=== PATIENT | male | born 1980 | race Caucasian/White ===

== ENCOUNTER 2024-08-06 07:57 | Day surgery (SDC) | payer OTHER, SELFPAY ==
--- NOTE | 2024-08-06 | PATH_ITS ---
[facility] Accession Number: [id number] No. of containers..01 Tissue . 01 Material submitted: . rectum - RECTAL POLYP . 01 Diagnosis: RECTAL POLYP: Hyperplastic polyp. MRV 08/10/2024 1115 Local . 01 Electronically signed: . Eran Dominique MD, PhD, Pathologist NPI- [id number] . 01 Gross description: . Received in formalin with two patient identifiers and rectal polyp, is a single james to brown soft tissue fragment, 0.8 cm in greatest dimension. Submitted in A1. ([id number]) /MRV 08/07/2024 1828 Local . 01 Pathologist provided ICD-10: K62.1 . 01 CPT . 882774 Specimen Comment: A courtesy copy of this report has been sent to [phone] Performed at: [address] [facility] [id number] MD Valdez Mccall MD Phone: [phone]
[2024-08-06] MEDS: LACTATED RINGERS 1,000 ML 100 ML IV (08:21)
[2024-08-06 08:22] VITALS: BP 104/72; PULSE 58; RESP 16; TEMP 36.3; O2SAT 98
--- NOTE | 2024-08-06 08:35 | PM.HP.1 ---
History of Present Illness History of Present Illness Date Patient Seen: 08/06/24 Time Patient Seen: 08:35 Chief complaint: SDC Narrative: Bhavin is a 44-year-old man who is here for a screening colonoscopy. He has never had one before. His grandfather had colon cancer. [facility] Family History Father Cancer Grandfather Cancer Social History marital status: number of children: 4 Smoking Status: Never smoker alcohol intake: never caffeine: Yes Type(s) of exercise: aerobic and weight lifting frequency: 5-6 times per week duration: 45-60 minutes/day Meds Home Medications and Allergies Home Medications Medication Instructions Recorded Confirmed Type No Known Home Medications 08/06/24 08/06/24 History Allergies Allergy/AdvReac Type Severity Reaction Status Date / Time No Known Drug Allergies Allergy Verified 08/06/24 08:19 Exam Vital Signs (past 8 hours): - 08/06/24 08:22 Temperature 97.3 F L Pulse Rate 58 L Respiratory Rate 16 Blood Pressure 104/72 Pulse Oximetry 98 Oxygen Delivery Method Room Air Oxygen Delivery Method Room Air Const General: healthy appearing Resp Effort & Inspection: normal respiratory effort Assessment & Plan Assessment and plan (1) Colon cancer screening: Status: Acute Plan Bhavin is a 44 year old man here for a colonoscopy for colon cancer screening. We reviewed the risks and benefits and he would like to proceed. Time-Based Coding :: [TOTAL MINUTES] spent with patient and on the chart (including review of chart, obtaining history, exam, reviewing outside data, placing orders, documenting exam and treatment plan, and counseling patient) on [DATE].
[2024-08-06 09:00] VITALS: BP 95/64; PULSE 72; RESP 22; TEMP 36.2; O2SAT 96
--- NOTE | 2024-08-06 09:03 | PM.OP.COLON ---
Operative Date/Time/Diagnoses Date of procedure: 08/06/24 Time of procedure: 09:03 Pre-op diagnosis: Colon cancer screening Post-op diagnosis: same Procedure & Clinicians Study performed: Colonoscopy Same procedure as scheduled: Yes Surgeon: Danny Jaeger Procedure Notes Procedure in detail: Surgeon: Danny Jaeger MD Anesthesia: Kaitlyn Husain CRNA Procedure: The patient was brought to the endoscopy suite, placed in left lateral decubitus position. The patient was connected to monitoring devices. A time-out was performed. Sedation was administered. Once the patient was adequately sedated, a digital rectal exam was performed and was normal. The scope was then inserted and advanced to the cecum where the appendiceal orifice was identified and photographed. The scope was then slowly withdrawn over greater than 6 minutes. The mucosa was thoroughly inspected. No abnormalities were identified. The scope was retroflexed in the rectum. The scope was straightened and removed. The patient was awakened and brought to recovery. Scope withdrawal time: 9 minutes Sedation time: 13 minutes EBL: 0 Findings: Normal colon Post-procedure Recommendations: Colonoscopy in 10 years Disposition: PACU
[2024-08-06 09:05] VITALS: BP 91/60; PULSE 60; RESP 16; TEMP 36.6; O2SAT 96
[2024-08-06 09:10] VITALS: BP 93/60; PULSE 60; RESP 16; TEMP 36.4; O2SAT 95
[2024-08-06 09:15] VITALS: BP 99/64; PULSE 68; RESP 13; TEMP 36.4; O2SAT 98
[2024-08-06 09:20] VITALS: BP 100/61; PULSE 65; RESP 15; TEMP 36.4; O2SAT 99
== END 2024-08-06 09:47 | disposition home or self-care (01) ==
PROVIDERS: PCP Nurse Practitioner Family; Referring Provider Surgery; Visit Provider Surgery
PROC: 0DJD8ZZ Inspection of Lower Intestinal Tract, Via Natural or Artificial Opening Endoscopic (ICD-10-PCS; CPT 45378; principal; 2024-08-06 09:00)
DX: Z12.11 Encounter for screening for malignant neoplasm of colon (principal)
CPT/HCPCS: 45378; J2704

== ENCOUNTER → 2025-11-16 15:10 | Outpatient (CLI) | payer OTHER, SELFPAY | LOC: RESP 15:11 | PROVIDERS: PCP Nurse Practitioner Family; Referring Provider Nurse Practitioner Family; Visit Provider Nurse Practitioner Family | DX: J45.990 Exercise induced bronchospasm (principal); R94.2 Abnormal results of pulmonary function studies | CPT/HCPCS: 94060 ==

== ENCOUNTER → 2025-11-29 12:39 | Outpatient (CLI) | payer OTHER, SELFPAY ==
--- NOTE | 2025-11-29 12:41 | DI.ECHO.S_ITS ---
[facility]+ [facility] : : [address] : : [place] : : [id number] : : Phone: [phone] Echocardiogram Report + + :Name: BHAVIN ROD Study Date: 11/29/2025 Height: 70 in : :Hospital ReadingLocation: Weight: 190 lb : : Gender: Male BSA: 2.0 m2 : :: 1980 Age: 45 yrs BP: 135/75 mmHg: :Reason For Study: BRADYCARDIA : :Ordering Physician: MICAELA, : :TYESHA Performed By: Bhavin Clarke : :Referring: TYESHA HINOJOSA : + + Interpretation Summary The ejection fraction is estimated to be 55-60%. Diastolic parameters suggest probable normal left ventricular diastolic function and normal filling pressures. The right ventricular systolic function is normal. The right ventricular systolic pressure is estimated to be at least 34 mmHg based on an estimated right atrial pressure of 8 mm Hg. The left atrium is mildly dilated. The right atrium is moderate to severely dilated. There is mild tricuspid regurgitation. Procedure: A two-dimensional transthoracic echocardiogram with color flow and Doppler was performed. The study quality was technically good. There is no prior echocardiogram noted for this patient. The patient was in a bradycardic rhythm during the exam. Left Ventricle: The left ventricle is normal in size. Left ventricular wall thickness is borderline increased. There is no ventricular septal defect visualized. The ejection fraction is estimated to be 55-60%. There are no focal wall motion abnormalities. Diastolic parameters suggest probable normal left ventricular diastolic function and normal filling pressures. Right Ventricle: The right ventricle is mildly dilated. The right ventricular systolic function is normal. Atria: The left atrium is mildly dilated. The right atrium is moderate to severely dilated. There is no Doppler evidence for an interatrial shunt. Mitral Valve: The mitral valve leaflets appear normal. There is no evidence of stenosis, fluttering, or prolapse. There is trace mitral regurgitation. Aortic Valve: The aortic valve is trileaflet. The aortic valve opens well. There is no aortic valve stenosis. No aortic regurgitation is present. Tricuspid Valve: The tricuspid valve leaflets are thin and pliable. There is mild tricuspid regurgitation. The right ventricular systolic pressure is estimated to be at least 34 mmHg based on an estimated right atrial pressure of 8 mm Hg. Pulmonic Valve: The pulmonic valve is not well seen, but is grossly normal. There is trace pulmonic regurgitation. Great Vessels: The aortic root is mildly dilated. The dimensions of the ascending aorta are normal. The pulmonary artery is normal size. The IVC is dilated (diameter is greater than 2.1 cm) yet it collapses greater than 50% with a sniff. This suggests a right atrial pressure of 8 mm Hg. Pericardium/ Pleura There is no pericardial effusion. There is no pleural effusion. MMode/2D Measurements & Calculations LVIDd: 5.4 cm LVOT diam: 2.2 cm LVIDs: 3.7 cm Ao root diam: 3.7 cm FS: 32.1 % asc Aorta Diam: 3.2 cm EPSS: 0.74 cm Ao Arch Diam (Prox Trans): 1.7 cm IVSd: 1.1 cm LVPWd: 0.91 cm LV beltran. diameter/BSA (cm/m^2): 2.7 LV sys. diameter/BSA (cm/m^2): 1.8 LA A2 area: 22.7 cm2 RA long axis: 5.6 cm LA A4 area: 19.8 cm2 RA area: 22.8 cm2 LA length (vol): 5.3 cm RA vol: 78.8 ml LA vol: 72.2 ml RA : 38.6 ml/m2 LA vol index: 35.3 ml/m2 IVC diam: 2.7 cm RVD1 (basal): 4.4 cm RVD2 (mid): 3.4 cm TAPSE: 2.3 cm Doppler Measurements & Calculations Ao V2 max: 153.0 cm/sec LVOT Max Quentin: 138.9 cm/sec Ao V2 mean: 108.4 cm/sec LV V1 max P.7 mmHg Ao max P.4 mmHg LV V1 VTI: 30.6 cm Ao mean P.3 mmHg JEANETTE(I,D): 3.4 cm2 Ao V2 VTI: 35.1 cm JEANETTE(V,D): 3.5 cm2 sev ratio: 0.87 JEANETTE indexed to BSA (cm^2/m^2): 1.7 MV E max quentin: 82.0 cm/sec TR max quentin: 256.5 cm/sec MV A max quentin: 38.5 cm/sec TR max P.3 mmHg MV E/A: 2.1 PA V2 max: 134.2 cm/sec Med Peak E' Quentin: 7.1 cm/sec PA V2 mean: 97.0 cm/sec E/E' med: 11.5 PA mean P.1 mmHg Lat Peak E' Quentin: 17.6 cm/sec PA pr(Accel): 27.6 mmHg E/E' lat: 4.7 E/e' average: 8.1 MV dec time: 0.25 sec SV(OT): 118.7 ml Reading Physician:02:08 PM
== END ==
LOC: ECHO 12:40
PROVIDERS: PCP Nurse Practitioner Family; Referring Provider Chiropractor; Visit Provider Chiropractor
DX: I07.1 Rheumatic tricuspid insufficiency (principal); I77.810 Thoracic aortic ectasia; J30.9 Allergic rhinitis, unspecified; R00.1 Bradycardia, unspecified
CPT/HCPCS: 93306